=== PATIENT | female | born 1960 | race Two or more races ===

== ENCOUNTER 2023-10-07 12:47 | Emergency (ER) | payer MEDICAID, OTHER ==
[~2023-10-07] VITALS: Ht 162.6 cm; Wt 68.7 kg
[2023-10-07 14:01] VITALS: BP 128/73
[2023-10-07 14:02] VITALS: PULSE 82; RESP 16; O2SAT 98
[2023-10-07] MEDS ORDERED: NAPR-746 PO (14:22)
[2023-10-07] MEDS ORDERED: CEPH500C PO (14:22)
[2023-10-07] MEDS: cefTRIAXone SOD 1,000 MG VL IM ONE (14:33)
[2023-10-07 14:34] VITALS: TEMP 98.3
[2023-10-07] MEDS: ACETAMINOPHEN 500 MG TAB PO ONE (14:34)
== END 2023-10-07 15:08 | disposition home or self-care (01) ==
LOC: ER 12:47
DX: D17.21 Benign lipomatous neoplasm of skin and subcutaneous tissue of right arm (principal); L08.89 Other specified local infections of the skin and subcutaneous tissue; Z79.899 Other long term (current) drug therapy
CPT/HCPCS: 96372; 99283; J0696

== ENCOUNTER 2023-10-11 18:39 | Emergency (ER) | payer MEDICAID ==
[~2023-10-11] VITALS: Ht 157.5 cm; Wt 69.5 kg
[~2023-10-11 18:39] MED LIST: CEPH500C PO; NAPR-746 PO
[2023-10-11] MEDS ORDERED: BACDST PO (20:30)
[2023-10-11 20:46] VITALS: BP 146/60; TEMP 98.6
[2023-10-11 21:00] VITALS: PULSE 99; RESP 16; O2SAT 96
[2023-10-11] MEDS: SULFAMETHOX W/TRIMETH(800/160MG) DS TAB PO ONE (21:13)
== END 2023-10-11 21:23 | disposition home or self-care (01) ==
LOC: ER 18:39
DX: L02.411 Cutaneous abscess of right axilla (principal); Z79.899 Other long term (current) drug therapy
CPT/HCPCS: 10060

== ENCOUNTER 2024-04-05 15:30 | Inpatient (IN) | payer MEDICAID ==
[~2024-04-05] VITALS: Ht 152.4 cm; Wt 71.4 kg
[~2024-04-05 15:30] MED LIST changes: +AUG875T PO; +BACDST PO; +CHOL500035 PO; +GLIP10TA9 PO; +LEVO100T8 PO; +METF-372 PO
--- NOTE | 2024-04-05 16:24 | DVH ---
XY CHEST PORTABLE, HISTORY: gen weak, body aches. low platelets. COMPARISON: None None TECHNICAL DATA: 1 view of the chest was obtained. FINDINGS: Lines and tubes: None Cardiomediastinal silhouette: normal Pulmonary vasculature: normal Lung expansion: normal Lung airspace: normal Lung interstitium: normal Pleura: normal Pneumothorax: no Bones: Unremarkable Other: no IMPRESSION: No acute intrathoracic abnormality.
[2024-04-05 16:35] LABS: Basophils # (auto) 0 10 ^3/uL (0-0.2); Basophils % (auto) 0.2 % (0.0-2.0); Eosinophils # (auto) 0.1 10 ^3/uL (0-0.8); Eosinophils % (auto) 0.8 % (0.0-7.0); Hematocrit 37.6 % (36.0-46.0); Hemoglobin 12.9 g/dL (12.2-16.2); Lymphocytes # (auto) 1.8 10 ^3/uL (0.4-5.4); Lymphocytes % (auto) 28.2 % (10.0-50.0); Mean Corpuscular Hemoglobin 28.7 pg (28.0-32.0); Mean Corpuscular Hgb Conc. 34.3 g/dL (32.0-36.0); Mean Corpuscular Volume 83.6 fL (80.0-100.0); Monocytes # (auto) 0.3 10 ^3/uL (0-1.3); Monocytes % (auto) 5.4 % (0.0-12.0); Neutrophils # (auto) 4.1 10 ^3/uL (1.6-8.6); Neutrophils % (auto) 65.4 % (37.0-80.0); Nucleated Red Blood Cells % 0.1 %; Platelet Count (auto) 106 10^3/uL (140-450); Red Cell Distribution Width 14.6 % (11.8-14.3); White Blood Cell 6.3 10^3/uL (4.4-10.8)
[2024-04-05 16:49] LABS: Alanine Aminotransferase 30 U/L (7-40); Albumin 4.6 g/dL (3.2-4.8); Anion Gap 9 (5-15); Aspartate Aminotransferase 19 U/L (13-40); BUN/Creatinine Ratio 21.7 (10.0-20.0); Bilirubin, Total 0.6 mg/dL (0.2-1.0); Blood Urea Nitrogen 13 mg/dL (9-23); Calcium 10.3 mg/dL (8.7-10.4); Carbon Dioxide 26 mmol/L (20-31); Chloride 100 mmol/L (98-107); Magnesium 1.9 mg/dL (1.6-2.6)
--- NOTE | 2024-04-05 16:54 | ED.PDOC ---
History of Present Illness HPI Comments HPI: Poor Historian. 63-year-old female presents to emergency department sent by her PCP for abnormal labs that were drawn on April 04, 2024. Noted thrombocytopenia platelets of 95. Also noted vitamin-D deficiency, thyroid disease. Patient also complains of generalized body aches and fatigue for the last eight months. No other acute complaints today. Past Medcial History: Diabetes, hyperlipidemia, abdominal carcinoma, vitamin-D deficiency, thyroid disease Past Surgical History: Tubal ligation REVIEW OF SYSTEMS: CONSTITUTIONAL: Denies acute: fever, diaphoresis, chills, HEAD: Denies acute: headache, photophobia Eyes: Denies acute: Double vision, vision loss, eye pain, eye discharge. EARS: Denies acute: tinnitus, hearing loss, ear discharge, ear pain, THROAT: Denies acute: sore throat, swelling, difficulty swallowing , pain with swallowing, change in voice. NECK: Denies acute: neck pain, neck swelling, stiff neck. HEART: Denies acute : chest pain, palpitations, LUNGS: Denies acute: SOB, wheezing, cough, hemoptysis ABDOMEN: Denies acute: abdominal pain, Nausea, Vomiting, diarrhea, melena , hematemesis, hematochezia SKIN: Denies acute: rash, redness, lesions, itchiness. EXTREMITIES: Denies acute: calf pain, numbness, tingling, weakness, denies pain in extremity. Denies acute: Low back pain. Neuro: Denies acute: focal neurological deficit, motor or sensory focal neurological deficit, tremors, seizure like activity, confusion, dizziness, change in mental status, loss of bowel or bladder function, cauda equina like symptoms. : Denies acute: dysuria, hematuria, flank pain, increase in urinary frequency. PSYCH: Denies acute: hallucination, suicidal ideation, homicidal ideation. FEMALE: Denies acute: abnormal vaginal bleeding, foul odor, unusual discharge. PHYSICAL EXAM: General: no acute distress, awake and alert. Head: normocephalic, atraumatic. Neck: supple, trachea is midline, no swelling. Throat: Normal phonation. No petechiae, no buccal mucosa, no obstruction. Eyes:, no erythema, no purulent discharge, no proptosis, no icterus. Heart: regular rate, regular rhythm, no significant murmur appreciated. Lungs: no apparent respiratory distress, Able to speak in full sentences. No wheezing, no rhonchi, no crackles. No stridors Clear to auscultation bilaterally. Abdomen: non tender to palpation, non distended, soft, no guarding, no rebound, + bowel sounds. Neuro: Awake, Alert, oriented to name, self, situation, follows commands GCS=15. Speech is normal. Skin: no petechia, no purpura, no cyanosis, non-pale, not jaundice. Lower extremities: --no - Pitting edema no deformity, no focal swelling, no calf TTP. Makes eye contact. moves all four extremities. Face: no apparent facial droop. Ambulating in the ED independently. Chief Complaint: Abnormal LAB's Time Seen by MD: 15:39 Primary Care Provider: JAMIA Camejo Notes: Nurses Notes, Allergies Allergies: Coded Allergies: NO KNOWN ALLERGIES (Unverified , 10/07/23) Home Meds Active Scripts Amoxicillin & Pot Clavulanate (AUGMENTIN TABLET) 875 Mg Tb, 875 MG PO BID for 7 Days, #14 TAB Prov:CHANO STEELE DO 12/10/23 Sulfamethoxazole W/Trimethopri (Bactrim Ds Tablet) 1 Tab Tb, 1 TAB PO BID for 7 Days, #14 TAB Prov:LAMAR JAIME PAC 10/11/23 Naproxen (Naproxen) 500 Mg Tab, 500 MG PO BID, #30 TAB Prov:MADELIN PERALES 10/07/23 Cephalexin Monohydrate (Cephalexin) 500 Mg Cap, 1 CAP PO TID, #30 CAP Prov:MADELIN PERALES 10/07/23 Information Source: Patient Mode of Arrival: Ambulatory Past Medical History PAST MEDICAL HISTORY: Denies Surgical History: Denies all surgeries DISPATCHER MAINTENANCE History: No Pertinent DISPATCHER MAINTENANCE History Family History Family History: Reviewed,noncontributory to illness Social History Smoker: Non-Smoker Alcohol: Denies ETOH Use Drugs: Denies Drug Use Lives In: Home Was a procedure done? Was a procedure done?: No Differential Dx Considerations may include: Includes but not limited to thyroid disease, encephalopathy, electrolyte abnormality, sepsis, infection, intracranial pathology, drug adverse effects, arrhythmia, kidney insufficiency, ACS, CVA, malignancy, anemia X-Ray, Labs, Meds, VS Vital Signs Date Time Temp Pulse Resp B/P (MAP) Pulse Ox O2 Delivery O2 Flow Rate FiO2 04/05/24 15:54 91 04/05/24 15:46 98.4 93 18 149/80 (103) 96 Lab Test 04/05/24 17:03 04/05/24 16:30 04/05/24 16:05 04/05/24 15:50 Range/Units Troponin I High Sensitivity < 3 L < 3 L </=34 ng/L Urine Color Light-yellow Yellow Urine Clarity Clear Clear Urine pH 5.0 5.0-9.0 Urine Specific [place] 1.034 1.001-1.035 Urine Protein Negative Negative Urine Ketones Negative Negative Urine Blood Negative Negative /uL Urine Nitrite Negative Negative Urine Bilirubin Negative Negative Urine Urobilinogen Normal Negative mg/dL Urine Leukocyte Esterase Negative Negative /uL Urine RBC None seen 0 - 4 /hpf Urine Microscopic WBC 1 0-5 /HPF Urine Squamous Epithelial Cells Few <5 /hpf Urine Bacteria None seen None Seen /hpf Urine Glucose 4+ H Normal mg/dL White Blood Count 6.3 4.4-10.8 10^3/uL Red Blood Count 4.50 4.0-5.20 10^6/uL Hemoglobin 12.9 12.2-16.2 g/dL Hematocrit 37.6 36.0-46.0 % Mean Corpuscular Volume 83.6 80.0-100.0 fL Mean Corpuscular Hemoglobin 28.7 28.0-32.0 pg Mean Corpuscular Hemoglobin Concent 34.3 32.0-36.0 g/dL Red Cell Distribution Width 14.6 H 11.8-14.3 % Platelet Count 106 L 140-450 10^3/uL Mean Platelet Volume 9.6 6.9-10.8 fL Neutrophils (%) (Auto) 65.4 37.0-80.0 % Lymphocytes (%) (Auto) 28.2 10.0-50.0 % Monocytes (%) (Auto) 5.4 0.0-12.0 % Eosinophils (%) (Auto) 0.8 0.0-7.0 % Basophils (%) (Auto) 0.2 0.0-2.0 % Neutrophils # (Auto) 4.1 1.6-8.6 10 ^3/uL Lymphocytes # (Auto) 1.8 0.4-5.4 10 ^3/uL Monocytes # (Auto) 0.3 0-1.3 10 ^3/uL Eosinophils # (Auto) 0.1 0-0.8 10 ^3/uL Basophils # (Auto) 0 0-0.2 10 ^3/uL Nucleated Red Blood Cells 0.1 % Platelet Estimate Decreased Anisocytosis (manual) Slight Sodium Level 135 L 136-145 mmol/L Potassium Level 4.0 3.5-5.1 mmol/L Chloride Level 100 98-107 mmol/L Carbon Dioxide Level 26 20-31 mmol/L Anion Gap 9 5-15 Blood Urea Nitrogen 13 9-23 mg/dL Creatinine 0.60 0.550-1.02 mg/dL Glomerular Filtration Rate Calc 101 >90 mL/min BUN/Creatinine Ratio 21.7 H 10.0-20.0 Serum Glucose 372 H 74-106 mg/dL Calcium Level 10.3 8.7-10.4 mg/dL Magnesium Level 1.9 1.6-2.6 mg/dL Total Bilirubin 0.6 0.2-1.0 mg/dL Aspartate Amino Transferase (AST) 19 13-40 U/L Alanine Aminotransferase (ALT) 30 7-40 U/L Alkaline Phosphatase 250 H 46-116 U/L Total Protein 8.0 5.7-8.2 g/dL Albumin 4.6 3.2-4.8 g/dL POC Glucose 385 H 70-106 mg/dl PATIENT: GRICELDA RUBALCAVA MACCT: [id number]: [id number] : 1960 LOC: ER ROOM / BED: / AGE / SEX: 63 / F ADM STATUS: REG ER SERVICE 1550 ORDERING PHYSICIAN: CHANO STEELE DO PROCEDURE(s): CXRP - CHEST PORTABLE REASON: gen weak, body aches. low platelets. ORDER NUMBER(s): [id number], ACCESSION NUMBER(s): [id number] XY CHEST PORTABLE, HISTORY: gen weak, body aches. low platelets. COMPARISON: None None TECHNICAL DATA: 1 view of the chest was obtained. FINDINGS: Lines and tubes: None Cardiomediastinal silhouette: normal Pulmonary vasculature: normal Lung expansion: normal Lung airspace: normal Lung interstitium: normal Pleura: normal Pneumothorax: no Bones: Unremarkable Other: no IMPRESSION: No acute intrathoracic abnormality. ATED BY: ROBERT SHI MD DICTATED DATE/TIME: 04/05/241620 SIGNED BY: ROBERT SHI MD SIGNED DATE/TIME: 04/05/241620 Time of 1ST Reevaluation: 00:00 Reevaluation 1ST: Unchanged Patient Education/Counseling: Diagnosis, Treatment Family Education/Counseling: Other Comments Patient presented with the above HPI.---generalized weakness---workup was initiated. patient was found with the above mentioned diagnosis. the following medications were ordered: please refer to order lists of meds and tests obtained by myself Dr. Steele. Patient ED course and VS have been stabilized. Patient has been reassessed in the ED and remained in a stable condition. Pertinent incidental findings were discussed with the patient and/or family. Patient/family voices understanding and is agreeable with plan. Patient has been observed in the ED adequate length of time to insure improvement/stability. Escalation of care considered: Consideration of escalation to observation or admission Patient was ADMITTED to the medicine team for further evaluation and treatment of their presentation. All the reports of any imaging studies that were ordered by myself were reviewed by myself. Departure 1 Departure Time of Disposition: 18:11 Impression: Primary Impression: Thrombocytopenia Additional Impressions: Generalized weakness Generalized body aches Uncontrolled diabetes mellitus Disposition: ADMITTED INPATIENT Admit to: [facility] Condition: Guarded Discharged With: Self Critical Care Note Critical Care Time?: No Heart Score Heart Score: Heart Score Response (Comments) Value History N/A 0 EKG Normal 0 Age 45-64 1 Risk Factors 1 or 2 risk factors 1 Troponin Normal limit 0 Total 2 I personally scribed for CHANO STEELE DO ([email or web address]) on 04/05/24 at 18:26. Electronically submitted by Patrick Baugh [email or web address]). CHANO STEELE DO Apr 05, 2024 16:54
[2024-04-05 17:08] LABS: Alkaline Phosphatase 250 U/L (46-116); Glucose 372 mg/dL (74-106); Sodium 135 mmol/L (136-145)
[2024-04-05 17:12] LABS: Anisocytosis Slight; Platelet Estimate Decreased
[2024-04-05 19:38] LABS: Urine Bacteria None Seen /hpf (None Seen)
[2024-04-05 19:50] LABS: Urine Blood Negative /uL (Negative); Urine Clarity Clear (Clear); Urine Color Light-Yellow (Yellow); Urine Protein, UAD Negative (Negative); Urine Specific Gravity 1.034 (1.001-1.035); Urine Squamous Epithelial Cell FEW /hpf (<5); Urine Urobilinogen Normal (Negative); Urine WBC 1 /HPF (0-5)
--- NOTE | 2024-04-05 23:33 | DVHHPRES ---
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 Per patient she was evaluated by PCP and found abnormal labs results, and referred to the hospital. She also reports of abdominal pain and fatigue. She denies fever, shortness of breaths, cough, chest pain, constipation, diarrhea, or any recent sick contact. PMHx: Diabetes, dyslipidemia, abdominal tumor, hypothyroidism PSHx: Tubal ligation Home medication: Glipizide, metformin, levothyroxine Allergic history: No known allergies Review of Systems Review of Systems General: Reports generalized weakness and fatigue HEENT: No headaches, visiual changes, hearing loss, tinnitus, nasal congestion and discharge, and sore throat. Cardiovascular: Denies chest pain, palpitations, dyspnea on exertion, orthopnea, or claudication. Respiratory: No cough, and wheezing. Gastrointestinal: Reports chronic mild generalized abdominal pain, per patient the pain is due to intra-abdominal benign tumor Genitourinary: No dysuria, hematuria, discharge, frequency, urgency, nocturia, incontinence, and urinary retention. Endocrine: No heat or cold intolerance, polydipsia, polyuria, and polyphagia. Neurological: No dizziness, extremity weakness and numbness, tremors, gait disturbance, seizures, and memory impairment. Psychiatric: Denies depression, anxiety,or insomnia. Musculoskeletal: Denies neck pain, stiffness and swelling, back pain, muscle weakness, joint pain, stiffness, swelling, or limited range of motion. Skin: No rashes, itching, skin lesion, changes in hair, nail, skin texture and breast. Hematologic/Lymphatic: Denies easy bruising, bleeding tendencies, or lymph node enlargement. Allergies: Coded Allergies: NO KNOWN ALLERGIES (Unverified , 10/07/23) Exam Vital Signs Vital Signs Date Time Temp Pulse Resp B/P (MAP) Pulse Ox O2 Delivery O2 Flow Rate FiO2 04/05/24 15:54 91 04/05/24 15:46 98.4 18 149/80 (103) 96 Exam General Appearance: Alert, Oriented X3, Cooperative, No acute distress HEENT: Atraumatic, PERRLA, EOMI, Mucous membrane moist/pink Respiratory: Clear to auscultation, Normal air movement Cardiovascular: Regular rate, Normal S1, Normal S2, No murmurs, no chest wall tenderness Abdominal: Mild abdominal tenderness Extremities: No clubbing, No cyanosis, No edema, Normal pulses, No tenderness/swelling Skin: No rashes, No breakdown, No significant lesion Neuro: Normal gait, Normal speech, Strength at 5/5 X4 ext, Normal tone, Sensation intact, Cranial nerves 3-12 NL, Reflexes 2+ Psych/Mental Status: Mental status NL, Mood NL Labs/Xrays Labs Test 04/05/24 17:03 04/05/24 16:30 04/05/24 16:05 04/05/24 15:50 Range/Units Troponin I High Sensitivity < 3 L </=34 ng/L Urine Color Light-yellow Yellow Urine Clarity Clear Clear Urine pH 5.0 5.0-9.0 Urine Specific [place] 1.034 1.001-1.035 Urine Protein Negative Negative Urine Ketones Negative Negative Urine Blood Negative Negative /uL Urine Nitrite Negative Negative Urine Bilirubin Negative Negative Urine Urobilinogen Normal Negative mg/dL Urine Leukocyte Esterase Negative Negative /uL Urine RBC None seen 0 - 4 /hpf Urine Microscopic WBC 1 0-5 /HPF Urine Squamous Epithelial Cells Few <5 /hpf Urine Bacteria None seen None Seen /hpf Urine Glucose 4+ H Normal mg/dL White Blood Count 6.3 4.4-10.8 10^3/uL Red Blood Count 4.50 4.0-5.20 10^6/uL Hemoglobin 12.9 12.2-16.2 g/dL Hematocrit 37.6 36.0-46.0 % Mean Corpuscular Volume 83.6 80.0-100.0 fL Mean Corpuscular Hemoglobin 28.7 28.0-32.0 pg Mean Corpuscular Hemoglobin Concent 34.3 32.0-36.0 g/dL Red Cell Distribution Width 14.6 H 11.8-14.3 % Platelet Count 106 L 140-450 10^3/uL Mean Platelet Volume 9.6 6.9-10.8 fL Neutrophils (%) (Auto) 65.4 37.0-80.0 % Lymphocytes (%) (Auto) 28.2 10.0-50.0 % Monocytes (%) (Auto) 5.4 0.0-12.0 % Eosinophils (%) (Auto) 0.8 0.0-7.0 % Basophils (%) (Auto) 0.2 0.0-2.0 % Neutrophils # (Auto) 4.1 1.6-8.6 10 ^3/uL Lymphocytes # (Auto) 1.8 0.4-5.4 10 ^3/uL Monocytes # (Auto) 0.3 0-1.3 10 ^3/uL Eosinophils # (Auto) 0.1 0-0.8 10 ^3/uL Basophils # (Auto) 0 0-0.2 10 ^3/uL Nucleated Red Blood Cells 0.1 % Platelet Estimate Decreased Anisocytosis (manual) Slight Sodium Level 135 L 136-145 mmol/L Potassium Level 4.0 3.5-5.1 mmol/L Chloride Level 100 98-107 mmol/L Carbon Dioxide Level 26 20-31 mmol/L Anion Gap 9 5-15 Blood Urea Nitrogen 13 9-23 mg/dL Creatinine 0.60 0.550-1.02 mg/dL Glomerular Filtration Rate Calc 101 >90 mL/min BUN/Creatinine Ratio 21.7 H 10.0-20.0 Serum Glucose 372 H 74-106 mg/dL Calcium Level 10.3 8.7-10.4 mg/dL Magnesium Level 1.9 1.6-2.6 mg/dL Total Bilirubin 0.6 0.2-1.0 mg/dL Aspartate Amino Transferase (AST) 19 13-40 U/L Alanine Aminotransferase (ALT) 30 7-40 U/L Alkaline Phosphatase 250 H 46-116 U/L Total Protein 8.0 5.7-8.2 g/dL Albumin 4.6 3.2-4.8 g/dL POC Glucose 385 H 70-106 mg/dl Assessment/Plan Assessment/Plan Diabetes type 2 with hyperglycemia Check Hb A1c Insulin regular 5 units IV Insulin moderate assist History of intra-abdominal tumor Abdominal CT scan Thrombocytopenia Liver ultrasound Check hepatitis panel Peripheral blood smear Hypothyroidism Continue levothyroxine History of dyslipidemia Check lipid panel DIET: Diabetic DISPOSITION: Med/surge Patient's status and paln discussed with the patient. Case discussed with Dr. Yeboah. Plan discussed with: Patient, Other Date of Service: Apr 05, 2024 Billing Provider: DANN BELL MD Common Visit Codes: [id number] INP/OBS CARE (HIGH) HEWADMAL,HEWAD RESDIENT Apr 05, 2024 23:33 DANN BELL MD Apr 12, 2024 15:50
[2024-04-06] VITALS (10 sets, daily range): BP systolic 114–145; BP diastolic 41–84; PULSE 68–86; RESP 16–20; TEMP 97.5–98.7; O2SAT 92–98
[2024-04-06] MEDS: InsuLIN REG 1unit/0.01ml Soln (100units/ml) IV ONE (02:30)
[2024-04-06] MEDS ORDERED: DEXTROSE (50%) 50ML SYRG IV PRN (02:30)
[2024-04-06] MEDS: SODIUM CHLORIDE 0.9% 1,000 ML IV ONE ×2 (02:45→03:23)
[2024-04-06 03:04] LABS: COVID19 ANTIGEN SOFIA FIA NEGATIVE (NEGATIVE); Rapid Influenza A Negative (Negative); Rapid Influenza B Negative (Negative)
[2024-04-06] MEDS ORDERED: ACETAMINOPHEN 325 MG TAB PO PRN (03:30)
[2024-04-06] MEDS ORDERED: GLIP5TAB21 PO (04:29)
[2024-04-06] MEDS: ACCU-CHEK COMFORT CURVE STRIP VI SCH (04:29)
[2024-04-06] MEDS ORDERED: LEVO88TA4 PO (04:29)
[2024-04-06] MEDS: InsuLIN REG 1unit/0.01ml Soln (100units/ml) SC SCH (04:29)
[2024-04-06] MEDS ORDERED: METF-370 PO (04:29)
[2024-04-06] MEDS: HYDROcodone-ACET 7.5/325MG TAB PO PRN (04:31)
[2024-04-06] MEDS: LEVOTHYROXINE SODIUM 100 MCG TAB PO SCH (05:16)
--- NOTE | 2024-04-06 08:56 | DVH ---
INDICATION: Elevated LFT TECHNIQUE: Multiple real-time sonographic images were obtained of the right upper quadrant. COMPARISON: None FINDINGS: The liver demonstrates coarsened echotexture without focal mass lesions. The liver measures 19 cm which is enlarged. There is no intrahepatic or extrahepatic ductal dilatation. The common du ct measures 5 mm. Portal flow is hepatofugal suggestive of portal hypertension. The gallbladder is without evidence of stone or sludge. The gallbladder wall measures 2 mm and is w ithin normal limits. The right kidney measures 13 cm. The right kidney is normal in contour, size, and shape. The echog enicity is normal. There is no hydronephrosis. The pancreas is not well visualized due to overlying bowel gas. IMPRESSION: Findings suggestive of hepatic cirrhosis. There is sequela of portal hypertension with hepatofugal p ortal flow.
[2024-04-06 09:38] LABS: Basophils # (auto) 0 10 ^3/uL (0-0.2); Basophils % (auto) 0.3 % (0.0-2.0); Eosinophils # (auto) 0.1 10 ^3/uL (0-0.8); Eosinophils % (auto) 1.2 % (0.0-7.0); Hematocrit 33.4 % (36.0-46.0); Hemoglobin 11.4 g/dL (12.2-16.2); INR 1.07 (0.9-1.15); Lymphocytes # (auto) 1.8 10 ^3/uL (0.4-5.4); Lymphocytes % (auto) 35.6 % (10.0-50.0); Mean Corpuscular Hemoglobin 28.6 pg (28.0-32.0); Mean Corpuscular Hgb Conc. 34.2 g/dL (32.0-36.0); Mean Corpuscular Volume 83.6 fL (80.0-100.0); Monocytes # (auto) 0.3 10 ^3/uL (0-1.3); Monocytes % (auto) 5.8 % (0.0-12.0); Neutrophils % (auto) 57.1 % (37.0-80.0); Nucleated Red Blood Cells % 0.1 %; Platelet Count (auto) 78 10^3/uL (140-450); Prothrombin Time 11.3 sec (9.3-11.8); Red Cell Distribution Width 14.8 % (11.8-14.3); White Blood Cell 5.2 10^3/uL (4.4-10.8)
[2024-04-06 09:42] LABS: Alanine Aminotransferase 25 U/L (7-40); Albumin 4.2 g/dL (3.2-4.8); Anion Gap 7 (5-15); Aspartate Aminotransferase 16 U/L (13-40); BUN/Creatinine Ratio 19.6 (10.0-20.0); Blood Urea Nitrogen 10 mg/dL (9-23); Calcium 9.1 mg/dL (8.7-10.4); Carbon Dioxide 26 mmol/L (20-31); Chloride 105 mmol/L (98-107); Cholesterol 171 mg/dL (< 200); Sodium 138 mmol/L (136-145)
[2024-04-06 09:43] LABS: Bilirubin, Total 0.6 mg/dL (0.2-1.0); Total Protein 7.2 g/dL (5.7-8.2)
[2024-04-06 09:45] LABS: Alkaline Phosphatase 189 U/L (46-116); Glucose 260 mg/dL (74-106); HDL Cholesterol 38 mg/dL (40-59); LDL Cholesterol 106 mg/dL (< 100); Potassium 3.5 mmol/L (3.5-5.1); Triglycerides 227 mg/dL (< 150)
[2024-04-06 10:21] LABS: Hepatitis A Ab IgM Negative; Hepatitis B Core IgM Negative (Negative); Hepatitis B Surface Antigen Negative (Negative); Hepatitis C Antibody Negative (Negative)
[2024-04-06] MEDS: INSULIN LANTUS (GLARGINE) 1 /0.01ml (100units/ml) SC SCH (12:08)
--- NOTE | 2024-04-06 12:43 | ECG ---
[facility] Test Date: 2024-04-05 Test Time: 15:54:27 Pat Name: GRICELDA RUBALCAVA Department: ED Room: 0276 B Gender: F Orthodontic Assistant: MAMIE : 1960 Requested By: CHANO STEELE Order Number: [id number] Reading MD: Xu Ramires Measurements Intervals [place] Rate: 91 P: 45 MD: 143 QRS: 128 QRSD: 99 T: 54 QT: 387 QTc: 477 Interpretive Statements Sinus rhythm Right axis deviation Low voltage, precordial leads Electronically Signed On 04-07-2024 13:15:10 PST by Xu Ramires Please click the below link to view image of tracing.
[2024-04-06] MEDS ORDERED: HYOS0.1289 PO (14:39)
[2024-04-06] MEDS ORDERED: HYDR-3682 PO (14:39)
[2024-04-06] MEDS ORDERED: PANT40T PO (14:39)
--- NOTE | 2024-04-06 18:11 | DVHPNRES ---
Progress Note Date Seen: Apr 06, 2024 Resident Creating Document: AIRAM LANDERS RESIDENT Has the PT tested + for MRSA If YES, has PT been informed?: No Medical Necessity Reason Pt with a Central, PICC or Fol: No Subjective Review of Systems This is a 63-year-old female with past medical history of type 2 diabetes mellitus, dyslipidemia, hypothyroidism, and intra-abdominal tumor (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 Per patient, she was evaluated by her PCP and found abnormal labs results associated with weakness and referred her to the hospital. Patient also reported chronic back pain it has been going on for several years. The patient denies fever, shortness of breaths, cough, chest pain, constipation, diarrhea, or any recent sick contact. Initial labs showed an hemoglobin of 12.7, platelets of 375512, CMP was grossly unremarkable. Initial chest x-ray showed no evidence of consolidations or any intrathoracic abnormalities. Patient was admitted for further assessment and management. Patient seen and examined at bedside. Patient is alert and oriented in person, place and time. The patient states that has a chronic epigastric abdominal pain rated as 7/10 that is subsided for periods of time becomes asymptomatic. The patient also reports generalized weakness but denies fever/chills, chest pain, shortness of breath or any other associated symptoms. Initial labs showed that the patient was having hyperglycemia at 372. The patient was started on 15 units of Lantus and moderate sliding scale insulin. Hemoglobin A1c came back at 10.2. We will keep monitoring blood glucose closely. TSH also came significantly elevated at 13.18 and free T4 is 0.96. Patient is currently on levothyroxine 100 mcg q.a.m.. We will consider increase levothyroxine dosage. ROS Constitutional: Reports generalized weakness Denies weight loss, fever and chills. HEENT: Denies changes in vision and hearing. Respiratory: Denies shortness of breath and cough Cardiovascular: Denies chest discomfort or palpitations GI: Reports mild to moderate chronic abdominal pain. Denies nausea, vomiting and diarrhea. : Denies dysuria and urinary frequency. Musculoskeletal: Denies myalgias and joint pain Skin: Denies rash and pruritus. Neurological: Denies dizziness, headache, vision or hearing problems Objective vital signs Vital Sign Date Time Temp Pulse Resp B/P (MAP) Pulse Ox O2 Delivery O2 Flow Rate FiO2 04/06/24 17:00 97.9 72 20 145/55 (85) 98 97.9 04/06/24 08:00 Room Air* 0 21 Total Intake and Output 04/05/24 04/05/24 04/06/24 15:00 23:00 07:00 Intake Total 505 ml Balance 505 ml medications Current Medications Medications Dose Ordered Sig/Melina Route Start Time Stop Time Status Last Admin Dose Admin Diagnostic Test (Pha) 1 strip IQ4HR 04/06/24 04:00 04/06/24 15:42 1 STRIP Insulin Human Regular IQ4HR SC 04/06/24 04:00 04/06/24 15:43 6 UNITS Dextrose 50 ml UD PRN IV 04/06/24 02:30 Levothyroxine Sodium 100 mcg QAM@0600 PO 04/06/24 06:00 04/06/24 05:16 100 MCG Acetaminophen/ Hydrocodone Bitart 1 tab Q6HP PRN PO 04/06/24 03:30 04/06/24 04:31 1 TAB Acetaminophen 650 mg Q4HP PRN PO 04/06/24 03:30 Insulin Glargine 15 units DAILY@1000 SC 04/06/24 11:15 04/06/24 12:08 15 UNITS Examination Physical Examination General: Patient alert and oriented in person, place and time. Patient seems weak and fatigued. Patient following commands. HEENT: Normocephalic, atraumatic, moist mucous membranes Respiratory/pulmonary: Clear lungs bilaterally, no associated crackles or wheezes. Cardiovascular: Normal heart sounds S1 and S2 with no associated murmurs Abdomen: Abdomen nondistended, there is mild to moderate pain to palpation of the epigastric region, no masses palpated at this time. Extremities: There is no peripheral edema present at the lower extremities. Peripheral Pulses: 3+ Radial (R). 3+ Radial (L). 3+ Dorsalis pedis (R). 3+ Dorsalis pedis(L) Skin: No rashes or pruritus, there is no sacral edema present at this time. Neurological: Intact cranial nerves with no focal neurologic deficits laboratory and microbiology Laboratory Tests 04/06/24 08:50 Test 04/06/24 08:50 Range/Units Serum Glucose 260 H 74-106 mg/dL Problem List/Assessment/Plan Problem List/Assessment/Plan Assessment/Plan Generalized weakness in the setting of possible dehydration Mild normocytic, normochromic anemia -Patient reported generalized weakness -1 L of fluids were provided, continue NS at 100 cc/hour -ordered iron panel and ferritin Uncontrolled Type 2 diabetes mellitus -hemoglobin A1c is 10.2 -started Lantus 15 units daily -moderate sliding scale insulin -monitor blood glucose closely Hypothyroidism -TSH came back at 13.18 and free T4 0.96 -continue levothyroxine 100 mcg q.a.m., we will consider increased dose of levothyroxine History of intra-abdominal tumors -follow-up as an outpatient Thrombocytopenia [place] of 3930[place] [address] -liver ultrasound was ordered showing findings suggestive of hepatic cirrhosis. There is sequela of portal hypertension with hepatofugal portal flow. -monitor CBC for platelet count. -peripheral blood smear -hepatitis panel came back negative Dyslipidemia -lipid panel showed elevated triglycerides -start atorvastatin 20 mg daily ACP, discussed with the patient at bedside for 20 minutes Goals of care discussed with the patient at bedside for >23min, FULL CODE Plan discussed with Dr. Yeboah Plan discussed with: Patient My Orders My Orders Orders - AIRAM LANDERS Procedure Category Date Status Time Insulin Lantus PHA 04/06/24 In Process (Glargine) (Lantus) 11:15 Date of Service: Apr 06, 2024 Billing Provider: DANN BELL MD Common Visit Codes: [id number] INP/OBS CARE(HIGH) AIRAM LANDERS RESIDENT Apr 06, 2024 18:11 DANN BELL MD Apr 11, 2024 23:54
[2024-04-06 18:48] LABS: % Iron Saturation 12.8 % (15-50)
[2024-04-06] MEDS: ATORVASTATIN 20 MG TAB PO SCH (21:23)
[2024-04-07 01:00] VITALS: BP 101/42; PULSE 78; RESP 17; TEMP 98.4; O2SAT 96
[2024-04-07 05:00] VITALS: BP 103/54; PULSE 73; RESP 18; TEMP 97.8; O2SAT 98
[2024-04-07 07:05] LABS: Basophils # (auto) 0 10 ^3/uL (0-0.2); Basophils % (auto) 0.5 % (0.0-2.0); Eosinophils # (auto) 0.1 10 ^3/uL (0-0.8); Eosinophils % (auto) 1.2 % (0.0-7.0); Hematocrit 34.3 % (36.0-46.0); Hemoglobin 11.8 g/dL (12.2-16.2); Lymphocytes # (auto) 2.4 10 ^3/uL (0.4-5.4); Lymphocytes % (auto) 40.9 % (10.0-50.0); Mean Corpuscular Hemoglobin 28.8 pg (28.0-32.0); Mean Corpuscular Hgb Conc. 34.4 g/dL (32.0-36.0); Mean Corpuscular Volume 83.7 fL (80.0-100.0); Monocytes # (auto) 0.3 10 ^3/uL (0-1.3); Neutrophils % (auto) 52.4 % (37.0-80.0); Nucleated Red Blood Cells % 0.1 %; Platelet Count (auto) 89 10^3/uL (140-450); Red Blood Cells 4.09 10^6/uL (4.0-5.20); Red Cell Distribution Width 14.5 % (11.8-14.3); White Blood Cell 5.8 10^3/uL (4.4-10.8)
[2024-04-07 07:15] LABS: Alanine Aminotransferase 24 U/L (7-40); Albumin 4.2 g/dL (3.2-4.8); Anion Gap 9 (5-15); Aspartate Aminotransferase 20 U/L (13-40); BUN/Creatinine Ratio 20.8 (10.0-20.0); Blood Urea Nitrogen 11 mg/dL (9-23); Calcium 9.5 mg/dL (8.7-10.4); Carbon Dioxide 27 mmol/L (20-31); Chloride 104 mmol/L (98-107); Potassium 3.6 mmol/L (3.5-5.1); Sodium 140 mmol/L (136-145)
[2024-04-07 07:16] LABS: Bilirubin, Total 0.6 mg/dL (0.2-1.0); Total Protein 7.2 g/dL (5.7-8.2)
[2024-04-07 07:17] LABS: Alkaline Phosphatase 167 U/L (46-116); Glucose 150 mg/dL (74-106)
[2024-04-07 08:00] VITALS: PULSE 64; RESP 18; O2SAT 96
[2024-04-07] MEDS: LEVOTHYROXINE SODIUM 112 MCG TAB PO SCH (08:17)
[2024-04-07 09:00] VITALS: BP 101/52; PULSE 64; RESP 18; TEMP 98; O2SAT 96
[2024-04-07] MEDS ORDERED: ONDANSETRON HCL 4 MG/2 ML VIAL IV ONE (09:45)
[2024-04-07] MEDS ORDERED: GASTROGRAFIN 30 ML SOL ONE (10:24)
[2024-04-07] MEDS: INSULIN LANTUS (GLARGINE) 1 /0.01ml (100units/ml) SC SCH (11:23)
[2024-04-07] MEDS ORDERED: IOHEXOL 300 MG/ML 100ML BOTTLE IJ ONE (12:38)
[2024-04-07 13:00] VITALS: BP 134/71; PULSE 58; RESP 18; TEMP 98; O2SAT 99
--- NOTE | 2024-04-07 13:08 | DVH ---
Exam: CT CT ABD PELVIS W CON-ORAL IV History: EPIGASTRIC PAIN, HX OF TUMORS/NODULES TECHNIQUE: A digital oxygen tank filler image was obtained. During the uneventful, intravenous administration of c ontrast material, multislice data acquisition was obtained through the abdomen and pelvis. The data s et was subsequently reconstructed into axial images. Images were reviewed on a work station using a c ombination of axial and multiplanar using a variety of window levels and settings. 100 cc of Omnipaqu e 300 contrast was injected intravenously. All CT scans at this medical facility are performed using dose modulation techniques as appropriate t o a performed exam including the following:Automated exposure control was utilized; adjustment of the MA and/or KV according to patient size; and use of iterative reconstruction technique. Radiation Dose Information: CT Dose: CTDI volume is 8.92 mGy. Dose-length product is 464.78 mGy*cm Comparison: None FINDINGS: The liver demonstrates mildly nodular surface contour. There is decreased attenuation of the liver pa renchyma. There is no suspicious appearing hepatic lesion. The spleen appears mildly prominent in siz e. The gallbladder, pancreas, kidneys, adrenal glands, appear within normal limits. There is no evidence of abdominal lymphadenopathy. There is no free fluid or free air. The stomach grossly appears unremarkable. The small and large bowel loops demonstrate normal caliber. A normal appearing appendix is seen in the right lower quadrant abdomen without associated inflamma tory changes. The abdominal aorta and IVC appear within normal limits. The bladder appears within normal limits the degree of distention. Pelvic organs is unremarkable. Th ere is no evidence of a pelvic mass or lymphadenopathy. There is no free fluid collection. Lung bases are clear. There is no acute osseous abnormality. IMPRESSION: 1. The liver demonstrates mildly nodular surface contour which can be seen with hepatic cirrhosis. T he spleen also appears mildly prominent in size. Clinical and laboratory correlation is recommended.. 2. The liver also demonstrates decreased attenuation which likely relates to fatty infiltration. HS:Y
[2024-04-07] MEDS ORDERED: LEVO112T4 PO (13:47)
[2024-04-07] MEDS ORDERED: EMPA1TAB PO (13:47)
[2024-04-07] MEDS ORDERED: SITA100T7 PO (13:47)
--- NOTE | 2024-04-07 14:10 | DVHDSRES ---
Discharge Summary Date of Admission Resident Creating Document: AIRAM LANDERS RESIDENT Apr 05, 2024 at 23:30 Date of Discharge: Apr 07, 2024 Admitting Diagnosis Generalized weakness Wounds: No wounds present at this time. Labs/Diagnostic Data: Laboratory Results Test 04/07/24 11:14 04/07/24 06:15 04/06/24 08:50 04/06/24 02:15 POC Glucose 264 mg/dl (70-106) White Blood Count 5.8 10^3/uL (4.4-10.8) Red Blood Count 4.09 10^6/uL (4.0-5.20) Hemoglobin 11.8 g/dL (12.2-16.2) Hematocrit 34.3 % (36.0-46.0) Mean Corpuscular Volume 83.7 fL (80.0-100.0) Mean Corpuscular Hemoglobin 28.8 pg (28.0-32.0) Mean Corpuscular Hemoglobin Concent 34.4 g/dL (32.0-36.0) Red Cell Distribution Width 14.5 % (11.8-14.3) Platelet Count 89 10^3/uL (140-450) Mean Platelet Volume 9.4 fL (6.9-10.8) Neutrophils (%) (Auto) 52.4 % (37.0-80.0) Lymphocytes (%) (Auto) 40.9 % (10.0-50.0) Monocytes (%) (Auto) 5.0 % (0.0-12.0) Eosinophils (%) (Auto) 1.2 % (0.0-7.0) Basophils (%) (Auto) 0.5 % (0.0-2.0) Neutrophils # (Auto) 3.0 10 ^3/uL (1.6-8.6) Lymphocytes # (Auto) 2.4 10 ^3/uL (0.4-5.4) Monocytes # (Auto) 0.3 10 ^3/uL (0-1.3) Eosinophils # (Auto) 0.1 10 ^3/uL (0-0.8) Basophils # (Auto) 0 10 ^3/uL (0-0.2) Nucleated Red Blood Cells 0.1 % Sodium Level 140 mmol/L (136-145) Potassium Level 3.6 mmol/L (3.5-5.1) Chloride Level 104 mmol/L (98-107) Carbon Dioxide Level 27 mmol/L (20-31) Anion Gap 9 (5-15) Blood Urea Nitrogen 11 mg/dL (9-23) Creatinine 0.53 mg/dL (0.550-1.02) Glomerular Filtration Rate Calc 104 mL/min (>90) BUN/Creatinine Ratio 20.8 (10.0-20.0) Serum Glucose 150 mg/dL (74-106) Calcium Level 9.5 mg/dL (8.7-10.4) Total Bilirubin 0.6 mg/dL (0.2-1.0) Aspartate Amino Transferase (AST) 20 U/L (13-40) Alanine Aminotransferase (ALT) 24 U/L (7-40) Alkaline Phosphatase 167 U/L (46-116) Total Protein 7.2 g/dL (5.7-8.2) Albumin 4.2 g/dL (3.2-4.8) Prothrombin Time 11.3 sec (9.3-11.8) Prothrombin Time INR 1.07 (0.9-1.15) Hemoglobin A1c 10.2 % A1C (<5.7) Iron Level 51 ug/dL (50-170) Total Iron Binding Capacity 398 ug/dL (250-425) Percent Iron Saturation 12.8 % (15-50) Ferritin 8.5 ng/mL (10-291) Lactate Dehydrogenase 120 U/L (120-246) Triglycerides Level 227 mg/dL (< 150) Cholesterol Level 171 mg/dL (< 200) LDL Cholesterol 106 mg/dL (< 100) HDL Cholesterol 38 mg/dL (40-59) Thyroid Stimulating Hormone (TSH) 13.18 uIU/mL (0.55-4.78) Free Thyroxine (T4) Calculated 0.96 ng/dL (0.89-1.76) Hepatitis A IgM Antibody Negative Hepatitis B Surface Antigen Negative (Negative) Hepatitis B Core IgM Antibody Negative (Negative) Hepatitis C Antibody Negative (Negative) Influenza Type A Antigen Negative (Negative) Influenza Type B Antigen Negative (Negative) SARS-CoV-2 Antigen (Rapid) Negative (NEGATIVE) Test 04/05/24 17:03 04/05/24 16:30 04/05/24 16:05 Troponin I High Sensitivity < 3 ng/L (</=34) Urine Color Light-yellow (Yellow) Urine Clarity Clear (Clear) Urine pH 5.0 (5.0-9.0) Urine Specific Marilla 1.034 (1.001-1.035) Urine Protein Negative (Negative) Urine Ketones Negative (Negative) Urine Blood Negative /uL (Negative) Urine Nitrite Negative (Negative) Urine Bilirubin Negative (Negative) Urine Urobilinogen Normal mg/dL (Negative) Urine Leukocyte Esterase Negative /uL (Negative) Urine RBC None seen /hpf (0 - 4) Urine Microscopic WBC 1 /HPF (0-5) Urine Squamous Epithelial Cells Few /hpf (<5) Urine Bacteria None seen /hpf (None Seen) Urine Glucose 4+ mg/dL (Normal) Platelet Estimate Decreased Anisocytosis (manual) Slight Magnesium Level 1.9 mg/dL (1.6-2.6) Other Laboratory Tests 04/07/24 06:15 Brief Hx & Hospital Course: Hospitalization course: This is a 63-year-old female with past medical history of type 2 diabetes mellitus, dyslipidemia, hypothyroidism, and intra-abdominal tumor (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 Per patient, she was evaluated by her PCP and found abnormal labs results associated with weakness and referred her to the hospital. Patient also reported chronic back pain it has been going on for several years. The patient denied fever, shortness of breaths, cough, chest pain, constipation, diarrhea, or any recent sick contact. Initial labs showed an hemoglobin of 12.7, platelets of [id number], CMP was grossly unremarkable. Initial chest x-ray showed no evidence of consolidations or any intrathoracic abnormalities. Initial blood glucose was over 300 reason why the patient was started on Lantus 15 units daily and then further increased to 18 units daily. The patient also had history of hypothyroidism and TSH came back at 13.18 and free T4 at 0.96. We will increase the dose of levothyroxine from 100-112 mcg p.o. q.a.m. patient needs to repeat TSH in eight weeks with her PCP for dosage adjustment. The patient also reported an epigastric abdominal pain reason why we ordered a CT scan of the abdomen with contrast because patient also reported previous "small abdominal masses", which were not seen on the CT abd/pelvis. Today, patient was re- evaluated at bedside. The patient denied fever/chills, abdominal pain, shortness of breath, or any other symptoms at this time. The patient states that feels better compared to admission. We explained the patient that she needs to start taking a new dose of levothyroxine 112 mcg q.a.m.. We also recommended to start Januvia 100 mg daily, empagliflozin 10 mg daily in addition to her home medications, metformin 1000 mg b.i.d. and glipizide 10 mg daily. Patient will follow-up in the discharge Clinic and with her PCP in seven days. Patient agrees and understands the plan. Admitting diagnosis: Generalized weakness Discharge plan -start Januvia 100 mg daily -start empagliflozin 10 mg daily -Levothyroxine 112 mcg p.o. daily -Continue metformin 1000 mg b.i.d. -Continue glipizide 10mg daily -follow-up with her PCP in one week Consults/Reason for consult N/a Operations or Procedures XY CHEST PORTABLE, HISTORY: gen weak, body aches. low platelets. COMPARISON: None None TECHNICAL DATA: 1 view of the chest was obtained. FINDINGS: Lines and tubes: None Cardiomediastinal silhouette: normal Pulmonary vasculature: normal Lung expansion: normal Lung airspace: normal Lung interstitium: normal Pleura: normal Pneumothorax: no Bones: Unremarkable Other: no IMPRESSION: No acute intrathoracic abnormality. INDICATION: Elevated LFT TECHNIQUE: Multiple real-time sonographic images were obtained of the right upper quadrant. COMPARISON: None FINDINGS: The liver demonstrates coarsened echotexture without focal mass lesions. The liver measures 19 cm which is enlarged. There is no intrahepatic or extrahepatic ductal dilatation. The common duct measures 5 mm. Portal flow is hepatofugal suggestive of portal hypertension. The gallbladder is without evidence of stone or sludge. The gallbladder wall measures 2 mm and is within normal limits. The right kidney measures 13 cm. The right kidney is normal in contour, size, and shape. The echogenicity is normal. There is no hydronephrosis. The pancreas is not well visualized due to overlying bowel gas. IMPRESSION: Findings suggestive of hepatic cirrhosis. There is sequela of portal hypertension with hepatofugal portal flow. Exam: CT CT ABD PELVIS W CON-ORAL IV History: EPIGASTRIC PAIN, HX OF TUMORS/NODULES TECHNIQUE: A digital lead injection mold technician image was obtained. During the uneventful, intravenous administration of contrast material, multislice data acquisition was obtained through the abdomen and pelvis. The data set was subsequently reconstructed into axial images. Images were reviewed on a work station using a combination of axial and multiplanar using a variety of window levels and settings. 100 cc of Omnipaque 300 contrast was injected intravenously. All CT scans at this medical facility are performed using dose modulation techniques as appropriate to a performed exam including the following:Automated exposure control was utilized; adjustment of the MA and/or KV according to patient size; and use of iterative reconstruction technique. Radiation Dose Information: CT Dose: CTDI volume is 8.92 mGy. Dose-length product is 464.78 mGy*cm Comparison: None FINDINGS: The liver demonstrates mildly nodular surface contour. There is decreased attenuation of the liver parenchyma. There is no suspicious appearing hepatic lesion. The spleen appears mildly prominent in size. The gallbladder, pancreas, kidneys, adrenal glands, appear within normal limits. There is no evidence of abdominal lymphadenopathy. There is no free fluid or free air. The stomach grossly appears unremarkable. The small and large bowel loops demonstrate normal caliber. A normal appearing appendix is seen in the right lower quadrant abdomen without associated inflammatory changes. The abdominal aorta and IVC appear within normal limits. The bladder appears within normal limits the degree of distention. Pelvic organs is unremarkable. There is no evidence of a pelvic mass or lymphadenopathy. There is no free fluid collection. Lung bases are clear. There is no acute osseous abnormality. IMPRESSION: 1. The liver demonstrates mildly nodular surface contour which can be seen with hepatic cirrhosis. The spleen also appears mildly prominent in size. Clinical and laboratory correlation is recommended.. 2. The liver also demonstrates decreased attenuation which likely relates to fatty infiltration. Condition at Discharge: Good Final Diagnosis/Problems List Generalized weakness in the setting of possible dehydration Mild normocytic, normochromic anemia Uncontrolled Type 2 diabetes mellitus Hypothyroidism History of intra-abdominal tumors? ruled out Thrombocytopenia in the setting of liver cirrhosis Dyslipidemia Discharge Disposition: Home Discharge Instruct/Medications Diet: Regular Activity: No Restrictions, As Tolerated Follow Up/Referral: F/U with her PCP as outpatietn in 1 week Follow-up with discharge Clinic. Medications: start Januvia 100 mg daily start empagliflozin 10 mg daily Levothyroxine 112 mcg p.o. daily Continue metformin 1000 mg b.i.d. Continue glipizide 10mg daily Discharge Statement: "Patient was advised to return to the ER or call 911 if any headaches, dizziness, shortness of breath, chest pain, abdominal pain, bleeding, fevers, or worsening of medical condition. Patient was counseled about treatment plan, medications, possible side effects, patientverbalized understanding. All questions were answered to the best of my ability. This discharge took greater then 30 minutes in planning, reviewing documentation, counseling the patient, and discussing with other team members." ASSESSMENT ASSESSMENT Assessment Generalized weakness in the setting of possible dehydration Mild normocytic, normochromic anemia Uncontrolled Type 2 diabetes mellitus Hypothyroidism History of intra-abdominal tumors? ruled out Thrombocytopenia in the setting of liver cirrhosis Dyslipidemia Date of Service: Apr 07, 2024 Billing Provider: DANN BELL MD Common Visit Codes: 93664-QIW/OBS DISCH DAY >30min AIRAM LANDERS RESIDENT Apr 07, 2024 14:10 DANN BELL MD Apr 12, 2024 15:30
[2024-04-07 14:18] VITALS: BP 134/71; PULSE 58; RESP 18; TEMP 98; O2SAT 99
== END 2024-04-07 15:42 | disposition home or self-care (01) | DRG 422 ==
LOC: ER 15:30 → OVERFLOW 23:30 → WEST WING 04-06 02:47
PROVIDERS: ADMIT Student in an Organized Health Care Education/Training Program; ATTEND Student in an Organized Health Care Education/Training Program
DX: E86.0 Dehydration (principal); D69.6 Thrombocytopenia, unspecified; K74.60 Unspecified cirrhosis of liver; E07.9 Disorder of thyroid, unspecified; E11.65 Type 2 diabetes mellitus with hyperglycemia; D64.9 Anemia, unspecified; E03.9 Hypothyroidism, unspecified; Z20.822 Contact with and (suspected) exposure to COVID-19; E78.5 Hyperlipidemia, unspecified; G89.29 Other chronic pain; M54.9 Dorsalgia, unspecified
CPT/HCPCS: 36415; 71045; 74177; 76705; 80053; 80061; 80074; 81001; 82728; 82962; 83036; 83540; 83550; 83615; 83735; 84439; 84443; 84484; 85025; 85610; 87426; 87804; 93005; G0378; J1815

== ENCOUNTER 2024-06-08 09:38 | Day surgery (SDC) | payer MEDICAID ==
[2024-06-07 09:37] LABS: Urine Bacteria None Seen /hpf (None Seen)
[2024-06-07 09:44] LABS: Basophils # (auto) 0 10 ^3/uL (0-0.2); Basophils % (auto) 0.4 % (0.0-2.0); Eosinophils # (auto) 0.1 10 ^3/uL (0-0.8); Eosinophils % (auto) 1.6 % (0.0-7.0); Hematocrit 35.7 % (36.0-46.0); Hemoglobin 12.3 g/dL (12.2-16.2); Lymphocytes % (auto) 30.5 % (10.0-50.0); Mean Corpuscular Hemoglobin 28.7 pg (28.0-32.0); Mean Corpuscular Hgb Conc. 34.4 g/dL (32.0-36.0); Mean Corpuscular Volume 83.3 fL (80.0-100.0); Monocytes # (auto) 0.4 10 ^3/uL (0-1.3); Monocytes % (auto) 5.8 % (0.0-12.0); Neutrophils # (auto) 4.1 10 ^3/uL (1.6-8.6); Neutrophils % (auto) 61.7 % (37.0-80.0); Platelet Count (auto) 105 10^3/uL (140-450); Red Blood Cells 4.28 10^6/uL (4.0-5.20); Red Cell Distribution Width 14.9 % (11.8-14.3); White Blood Cell 6.6 10^3/uL (4.4-10.8)
[2024-06-07 09:58] LABS: INR 1.07 (0.9-1.15); Partial Thromboplastin Time 29.6 SEC (24.5-34.5); Prothrombin Time 11.3 sec (9.3-11.8)
[2024-06-07 10:27] LABS: Alanine Aminotransferase 21 U/L (7-40); Anion Gap 7 (5-15); Aspartate Aminotransferase 21 U/L (13-40); BUN/Creatinine Ratio 19.3 (10.0-20.0); Blood Urea Nitrogen 11 mg/dL (9-23); Calcium 10.1 mg/dL (8.7-10.4); Carbon Dioxide 28 mmol/L (20-31); Chloride 104 mmol/L (98-107); Potassium 3.9 mmol/L (3.5-5.1); Sodium 139 mmol/L (136-145)
[2024-06-07 10:37] LABS: Albumin 4.8 g/dL (3.2-4.8); Alkaline Phosphatase 150 U/L (46-116); Glucose 195 mg/dL (74-106); Total Protein 8.5 g/dL (5.7-8.2)
[2024-06-07 11:09] LABS: Urine Blood Negative /uL (Negative); Urine Clarity Clear (Clear); Urine Color Light-Yellow (Yellow); Urine Protein, UAD Negative (Negative); Urine Specific Gravity 1.009 (1.001-1.035); Urine Squamous Epithelial Cell FEW /hpf (<5); Urine Urobilinogen Normal (Negative); Urine WBC 1 /HPF (0-5); Urine pH 5.5 (5.0-9.0)
[~2024-06-08] VITALS: Ht 152.4 cm; Wt 72.1 kg
[~2024-06-08 09:38] MED LIST changes: -AUG875T PO; -BACDST PO; -CEPH500C PO; +CHOL20TA PO; -CHOL500035 PO; +EMPA1TAB PO; -LEVO100T8 PO; +LEVO112T4 PO; +MULT-1018 PO; -NAPR-746 PO; +ONDA-155 PO; +SITA100T7 PO; +VITA100T3 PO
[2024-06-08] MEDS ORDERED: fentaNYL CITRATE 100 MCG/2 ML VL ONE (10:12)
[2024-06-08] MEDS ORDERED: PROPOFOL 10 MG/ML 20 ML IV ONE (10:12)
[2024-06-08] MEDS ORDERED: GLYCOPYRROLATE 0.2 MG/ML 1ML VIAL ONE (11:31)
[2024-06-08 11:42] VITALS: PULSE 80; RESP 17; O2SAT 100
--- NOTE | 2024-06-08 11:43 | DVHHP2 ---
GI H&P Pre-Op Assessment Date: 06/08/24 Chief complaint:abdominal pain HPI: per clinic note Past medical history: per clinic note Past surgical history: per clinic note Family history: per clinic note Physical exam: General: NAD, AAOX3 HEENT: PERRL, no scleral icterus, normal hearing, gums without lesions or bleed ing, oropharynx clear without erythema or exudate. Neck: Supple without enlargement of the thyroid, or lymphadenopathy. Chest: Normal size and shape, no tenderness, lung adler clear to auscultation and percussion, nonlabored breathing. Heart: RRR, no murmur Abdomen: non-distended, no tenderness to palpation, +BS, no hepatosplenomegaly Extremities: no edema Neurological: CN II-XII intact, sensation intact in all extremities, 5+ strength in all extremities Skin: No rashes, No jaundice Assessment: - abdominal pain Plan: - EGD - Colonoscopy - Risks (bleeding, infection, perforation, reaction to sedation medications and cardiopulmonary arrest) and benefit of the procedure were explained to patient. Patient agrees to undergo the procedure. FAY JESUS MD Jun 08, 2024 11:43
--- NOTE | 2024-06-08 11:45 | DVHOP2 ---
Operative Report DATE OF OPERATION: 06/08/24 PROCEDURE: Upper Endoscopy. PREOPERATIVE INDICATION: The patient is a 64 -year-old female undergoing endoscopy for abdominal pain. POSTOPERATIVE DIAGNOSES: 1. Mild gastritis 2. There were two spots of tattooing in the body of of stomach. 3. No esophageal varices was observed. PROCEDURE PERFORMED BY: Junior Abdullahi SCOPE: Olympus videoendoscope. ASA CLASS: 3 PREOPERATIVE MEDICATIONS: MAC with Dr Quinones PROCEDURE IN DETAIL: After obtaining an informed consent, the patient was placed on left lateral decubitus position. The patient was then sedated with the above medications. A bite block was placed between her teeth. The endoscope was then passed through the oropharynx, into the esophagus, and through the stomach and pylorus up to the second and third part of the duodenum. The duodenum was normal appearance. There was mild gastritis. Gastric biopsies were obtained. There was two spots of tattooing in the body of the stomach. The GE junction was normal appearance at 35 cm. The esophagus was normal in appearance. No esophageal varices was observed. The endoscope was then withdrawn. The patient tolerated the procedure well without difficulty. COMPLICATIONS : None SPECIMENS: Gastric biopsies DISPOSITION: D/C to home PLAN: 1. Await for biopsy result JUNIOR ABDULLAHI MD Jun 08, 2024 11:45
--- NOTE | 2024-06-08 11:46 | DVHOP2 ---
Operative Report DATE OF OPERATION: 06/08/24 PROCEDURE: Colonoscopy. PREOPERATIVE INDICATION: The patient is a 64 -year-old female undergoing colonoscopy for abdominal pain. POSTOPERATIVE DIAGNOSES: 1. Normal colonoscopy PROCEDURE PERFORMED BY: Junior Abdullahi M.D. SCOPE: Olympus videocolonoscope. ASA CLASS: 3 PREOPERATIVE MEDICATIONS: MAC with Dr Quinones PROCEDURE IN DETAIL: After obtaining an informed consent, the patient was placed on left lateral decubitus position. She was then sedated with the above medications. A rectal examination was performed that was normal. The colonoscope was then passed through the anus into the rectosigmoid and through the descending, transverse, and ascending colon up to the cecum with visualization of the appendiceal orifice, base of the cecum and the ileocecal valve. No mass or polyp was observed. The colonoscope was then withdrawn. The patient tolerated the procedure well without difficulty. WITHDRAWAL TIME: 6 minutes QUALITY OF THE PREP: [place] Bowel Prep score: 7 COMPLICATIONS : None SPECIMENS: None DISPOSITION: D/C to home PLAN: 1. Repeat colonoscopy in 10 years for colon cancer screening. JUNIOR ABDULLAHI MD Jun 08, 2024 11:46
--- NOTE | 2024-06-08 11:46 | DVHDS2 ---
Physician Discharge Progress N Final Diagnosis: Mild gastritis, previous spot of tattoo in the body of stomach. Normal colonoscopy Operations or Procedures: Operations or Procedures EGD with cold biopsy Colonoscopy Condition on Discharge: Good Disposition: Home Discharge Instructions: Diet: Regular Activity: No Restrictions, As Tolerated Medications: Resume with previous home medications Follow Up Care: Discharge Statement: "Patient was advised to return to the ER or call 911 if any headaches, dizziness, shortness of breath, chest pain, abdominal pain, bleeding, fevers, or worsening of medical condition. Patient was counseled about treatment plan, medications, possible side effects, patientverbalized understanding. All questions were answered to the best of my ability. This discharge took greater then 30 minutes in planning, reviewing documentation, counseling the patient, and discussing with other team members." FAY JESUS MD Jun 08, 2024 11:46
[2024-06-08 12:18] VITALS: BP 116/70; PULSE 80; RESP 14; O2SAT 98
== END 2024-06-08 12:30 | disposition home or self-care (01) ==
LOC: GI 09:38
PROVIDERS: ATTEND Internal Medicine Gastroenterology
DX: K59.00 Constipation, unspecified (principal); R19.7 Diarrhea, unspecified; K29.50 Unspecified chronic gastritis without bleeding; B96.81 Helicobacter pylori [H. pylori] as the cause of diseases classified elsewhere; K31.A19 Gastric intestinal metaplasia without dysplasia, unspecified site; K21.9 Gastro-esophageal reflux disease without esophagitis; R10.9 Unspecified abdominal pain; E11.9 Type 2 diabetes mellitus without complications; E03.9 Hypothyroidism, unspecified; E66.9 Obesity, unspecified; Z68.31 Body mass index [BMI] 31.0-31.9, adult; Z87.442 Personal history of urinary calculi; Z90.710 Acquired absence of both cervix and uterus
CPT/HCPCS: 36415; 43239; 45378; 80053; 81001; 82962; 85025; 85610; 85730; 88305; 88312; 88342; J2704; J3010; J7030; 99152